=== PATIENT | female | born 1990 | race Hispanic/Latino ===

== ENCOUNTER 2018-06-15 21:39 | Emergency (ER) | payer BC ==
[2018-06-15] MEDS ORDERED: CEFTRIAXONE/SWI 1gm 1 GM/10 ML SYR ONE (22:22)
[2018-06-15] MEDS ORDERED: NA CHLORIDE 0.9% 1,000 ML ONE (22:22)
[2018-06-15] MEDS ORDERED: KETOROLAC 30 MG/ML INJ ONE (22:22)
[2018-06-15 22:26] LABS: Urine Blood TRACE (NEG); Urine Glucose NEGATIVE (NEG); Urine Protein NEGATIVE (NEG)
[2018-06-15 22:30] LABS: Absolute Lymphocytes (CBC) 1.2 K/uL (0.7-4.9); Absolute Monocytes 0.4 K/uL (0.1-1.3); Absolute Neutrophil 3.9 K/uL (1.8-8.0); Basophils % 0.4 % (0-1.3); Lymphocytes % 21.7 % (15.3-44.8); MPV 9.8 fL (7.6-11.3); Monocytes % 7.8 % (3.3-12.3); RBC Red Blood Cell Count 4.21 M/uL (3.86-4.86)
[2018-06-15 22:43] LABS: ALT/SGPT 13 U/L (12-78); AST/SGOT 11 U/L (15-37); Albumin 4.5 g/dL (3.4-5.0); Alkaline Phosphatase 56 U/L (45-117); BUN Blood Urea Nitrogen 6 mg/dL (7-18); Bicarbonate 26 mmol/L (21-32); Bilirubin Direct 0.2 mg/dL (0-0.2); Bilirubin Total 0.8 mg/dL (0.2-1.0); Glucose Level 104 mg/dL (74-106); Lipase 65 U/L (73-393); Potassium 3.3 mmol/L (3.5-5.1); Protein, Total 7.6 g/dL (6.4-8.2); Sodium Level 140 mmol/L (136-145)
--- NOTE | 2018-06-16 00:30 | ER ---
Nurse's Notes [facility] Name: Veronica Watson Age: 28 yrs Sex: Female : 1990 Arrival Date: 06/15/2018 Time: 21:50 Bed 6 Private MD: Diagnosis: Gastritis and duodenitis Presentation: 06/15 21:52 Presenting complaint: Patient states: left lower abd pain that radiates to left flank. ak1 pt c/o vomiting X1 this morning and diarrhea X1 this morning. pt denies burning with urination, pt denies N/V at this time. Transition of care: patient was not received from another setting of care. Onset of symptoms was June 15, 2018. Risk Assessment: Do you want to hurt yourself or someone else? Patient reports no desire to harm self or others. Initial Sepsis Screen: Does the patient meet any 2 criteria? No. Patient's initial sepsis screen is negative. Does the patient have a suspected source of infection? No. Patient's initial sepsis screen is negative. Care prior to arrival: None. 21:52 Method Of Arrival: Ambulatory ak 21:52 Acuity: CARYL 3 ak1 Triage Assessment: 21:53 General: Appears in no apparent distress. Behavior is calm, cooperative, anxious. 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 - Social history:: Smoking status: Patient/guardian denies using tobacco, Patient/guardian denies using alcohol, street drugs, The patient lives with family. - Ebola Screening: : No symptoms or risks identified at this time. - Family history:: not pertinent. Screenin:01 Abuse screen: Denies threats or abuse. Nutritional screening: No deficits noted. jd3 Tuberculosis screening: No symptoms or risk factors identified. Fall Risk Ambulatory Aid- None/Bed Rest/Nurse Assist (0 pts). Gait- Normal/Bed Rest/Wheelchair (0 pts) Mental Status- Oriented to own ability (0 pts). Total Jc Fall Scale indicates No Risk (0-24 pts). Assessment: 21:58 General: Appears in no apparent distress. uncomfortable, Behavior is calm, cooperative, jd3 appropriate for age. Pain: Complains of pain in posterior aspect of left lateral abdomen Quality of pain is described as aching, tender. Neuro: Level of Consciousness is awake, alert, obeys commands, Oriented to person, place, time, situation. Cardiovascular: Capillary refill < 3 seconds Patient's skin is warm and dry. Respiratory: Airway is patent Respiratory effort is even, unlabored, Respiratory pattern is regular, symmetrical. GI: Abdomen is flat, non-distended, Bowel sounds present X 4 quads. Abdomen is tender to palpation in posterior aspect of left lateral abdomen, left upper quadrant and left lower quadrant Reports. : Reports small amount of blood in the urine. EENT: No signs and/or symptoms were reported regarding the EENT system. Derm: Skin is intact, Skin is dry, Skin is normal, Skin temperature is warm. Musculoskeletal: Circulation, motion, and sensation intact. Range of motion: intact in all extremities. 06/16 00:35 Reassessment: Patient and/or family updated on plan of care and expected duration. Pain tl1 level reassessed. Patient is alert, oriented x 3, equal unlabored respirations, skin warm/dry/pink. Patient states feeling better. Patient states symptoms have improved. GI: Bowel sounds present X 4 quads. Abd is soft and non tender X 4 quads. Vital Signs: 06/15 21:53 BP 120 / 73; Pulse 91; Resp 18; Temp 99.0(O); Pulse Ox 100% on R/A; Weight 77.11 kg ak1 (R); Height 5 ft. 7 in. (170.18 cm) (R); Pain 6/10; 22:25 BP 115 / 69; Pulse 88; Resp 17; Pulse Ox 100% on R/A; Pain 2/10; tl1 23:29 BP 115 / 75; Pulse 79; Resp 17; Pulse Ox 100% ; Pain 0/10; tl1 06/16 00:35 BP 110 / 66; Pulse 77; Resp 17; Temp 98.7; Pulse Ox 100% ; Pain 0/10; tl1 06/15 21:53 Body Mass Index 26.63 (77.11 kg, 170.18 cm) ak1 ED Course: 02/15 21:50 Patient arrived in ED. ak1 21:50 Susana Mcintyre MD is Attending Physician. ma2 21:53 Triage completed. ak1 21:53 Christopher Jasso, EDSON is Primary Nurse. jd3 21:53 Arm band placed on Patient placed in an exam room, on a stretcher, Patient notified of ak1 wait time. 22:01 Patient has correct armband on for positive identification. Placed in gown. Bed in low jd3 position. Call light in reach. Side rails up X 1. Adult w/ patient. 22:05 No provider procedures requiring assistance completed. Inserted saline lock: 20 gauge tl1 in right antecubital area, using aseptic technique. Blood collected. 22:10 Radiology exam delayed due to lab results not completed at this time. (BUN/Creatinine). 2 22:[address] via wheelchair. nj 23:02 CT completed. Patient tolerated procedure well. Patient moved back from CT. nj 23:13 CT Abd/Pelvis - W/Contrast In Process Unspecified. EDMS 06/16 00:37 IV discontinued, intact, bleeding controlled, No redness/swelling at site. Pressure tl1 dressing applied. Administered Medications: 06/15 22:21 Drug: Rocephin 1 grams Route: IV; Rate: calculated rate; Infused Over: 5 mins; Site: tl1 right antecubital; 22:53 Follow up: IV Status: Completed infusion tl1 22:21 Drug: TORadol 30 mg Route: IVP; Infused Over: 2 mins; Site: right antecubital; tl1 22:53 Follow up: Response: No adverse reaction; Marked relief of symptoms; Pain is decreased tl1 22:22 Drug: NS 0.9% 1000 ml Route: IV; Rate: 1 bolus; Site: right antecubital; tl1 22:53 Follow up: IV Status: Completed infusion tl1 Outcome: 06/16 00:26 Discharge ordered by . ma2 00:36 Discharged to home ambulatory, with family. tl1 00:36 Condition: good 00:36 Discharge instructions given to patient, family, Instructed on discharge instructions, follow up and referral plans. medication usage, Demonstrated understanding of instructions, follow-up care, medications, Prescriptions given X 2. 00:37 Patient left the ED. tl1 Signatures: [facility] Ayana Carrasco, RN RN tl1 Nataly Kemp RN RN ak1 Michael [place] vm2 Christopher Jasso RN RN jd3 Susana Mcintyre MD MD ma2
--- NOTE | 2018-06-16 00:32 | EDPHYS ---
Physician Documentation [facility] Name: Veronica Watson Age: 28 yrs Sex: Female : 1990 Arrival Date: 06/15/2018 Time: 21:50 Bed 6 Private MD: ED Physician Susana Mcintyre HPI: 06/15 22:42 This 28 yrs old Female presents to ER via Ambulatory with complaints of abd ma2 pain. 22:42 The patient presents with abdominal pain. Onset: The symptoms/episode began/occurred ma2 gradually, 1 day(s) ago. Associated signs and symptoms: Pertinent negatives: nausea and vomiting, blood in stools, diarrhea, shortness of breath, vomiting. The symptoms are described as achy. Severity of pain: At its worst the pain was moderate in the emergency department the pain is unchanged. The patient has not experienced similar symptoms in the past. 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 - Social history:: Smoking status: Patient/guardian denies using tobacco, Patient/guardian denies using alcohol, street drugs, The patient lives with family. - Ebola Screening: : No symptoms or risks identified at this time. - Family history:: not pertinent. ROS: 22:42 Constitutional: Negative for fever, chills, and weight loss. ma2 22:42 Abdomen/GI: Positive for abdominal pain, Negative for nausea and vomiting, nausea, vomiting, and diarrhea, vomiting, abdominal distension, rectal bleeding, flatulence. 22:42 All other systems are negative. Exam: 22:42 Constitutional: This is a well developed, well nourished patient who is awake, alert, ma2 and in no acute distress. Chest/axilla: Normal chest wall appearance and motion. Nontender with no deformity. No lesions are appreciated. Cardiovascular: Regular rate and rhythm with a normal S1 and S2. No gallops, murmurs, or rubs. Normal PMI, no JVD. No pulse deficits. Respiratory: Lungs have equal breath sounds bilaterally, clear to auscultation and percussion. No rales, rhonchi or wheezes noted. No increased work of breathing, no retractions or nasal flaring. Abdomen/GI: Soft, non-tender, with normal bowel sounds. No distension or tympany. No guarding or rebound. No evidence of tenderness throughout. Back: No spinal tenderness. No costovertebral tenderness. Full range of motion. MS/ Extremity: Pulses equal, no cyanosis. Neurovascular intact. Full, normal range of motion. Neuro: Awake and alert, GCS 15, oriented to person, place, time, and situation. Cranial nerves II-XII grossly intact. Motor strength 5/5 in all extremities. Sensory grossly intact. Cerebellar exam normal. Normal gait. Vital Signs: 21:53 BP 120 / 73; Pulse 91; Resp 18; Temp 99.0(O); Pulse Ox 100% on R/A; Weight 77.11 kg ak1 (R); Height 5 ft. 7 in. (170.18 cm) (R); Pain 6/10; 22:25 BP 115 / 69; Pulse 88; Resp 17; Pulse Ox 100% on R/A; Pain 2/10; tl1 23:29 BP 115 / 75; Pulse 79; Resp 17; Pulse Ox 100% ; Pain 0/10; tl1 06/16 00:35 BP 110 / 66; Pulse 77; Resp 17; Temp 98.7; Pulse Ox 100% ; Pain 0/10; tl1 06/15 21:53 Body Mass Index 26.63 (77.11 kg, 170.18 cm) ak1 MDM: 06/15 21:50 Patient medically screened. ma2 22:42 Differential diagnosis: diverticulitis, Ectopic , gastritis, gastroesophageal ma2 reflux disease, Irritable bowel syndrome. 06/16 00:26 Data reviewed: vital signs, nurses notes. Counseling: I had a detailed discussion with ma2 the patient and/or guardian regarding: the historical points, exam findings, and any diagnostic results supporting the discharge/admit diagnosis, the presence of at least one elevated blood pressure reading (>120/80) during this emergency department visit. Response to treatment: the patient's symptoms have markedly improved after treatment. 06/15 22:07 Order name: Urine Dipstick--Ancillary (enter results); Complete Time: 23:38 ag4 06/15 22:07 Order name: Urine --Ancillary (enter results); Complete Time: 23:38 4 06/15 22:09 Order name: Basic Metabolic Panel; Complete Time: 23:38 ak2 06/15 22:09 Order name: CBC with Diff; Complete Time: 23:38 ak2 06/15 22:09 Order name: Creatinine for Radiology; Complete Time: 23:38 ak2 06/15 22:09 Order name: Hepatic Function; Complete Time: 23:38 ak2 06/15 22:09 Order name: Lipase; Complete Time: 23:38 ak2 06/15 22:09 Order name: IV Saline Lock; Complete Time: 22:34 ak2 06/15 22:09 Order name: Labs collected and sent; Complete Time: 22:34 [facility] 06/15 22:09 Order name: Test, Serum; Complete Time: 23:38 ak2 06/15 22:09 Order name: CT Abd/Pelvis - W/Contrast [facility] 06/15 22:09 Order name: Urine Dipstick-Ancillary (obtain specimen); Complete Time: 22:22 ma2 Administered Medications: 06/15 22:21 Drug: Rocephin 1 grams Route: IV; Rate: calculated rate; Infused Over: 5 mins; Site: tl1 right antecubital; 22:53 Follow up: IV Status: Completed infusion tl1 22:21 Drug: TORadol 30 mg Route: IVP; Infused Over: 2 mins; Site: right antecubital; tl1 22:53 Follow up: Response: No adverse reaction; Marked relief of symptoms; Pain is decreased tl1 22:22 Drug: NS 0.9% 1000 ml Route: IV; Rate: 1 bolus; Site: right antecubital; tl1 22:53 Follow up: IV Status: Completed infusion tl1 Disposition: 06/16/18 00:26 Discharged to Home. Impression: Gastritis and duodenitis. - Condition is Stable. - Discharge Instructions: Gastritis, Adult. - Prescriptions for Tylenol- Codeine #3 300-30 mg Oral Tablet - take 2 tablet by ORAL route every 6 hours As needed; 30 tablet. Pepcid 20 mg Oral Tablet - take 1 tablet by ORAL route once daily for 10 days; 10 tablet. - Medication Reconciliation Form, Thank You Letter, Antibiotic Education, Prescription Opioid Use form. - Follow up: Private Physician; When: [place]; Reason: Continuance of care. Signatures: Dispatcher [employer] Ayana Carrasco RN RN tl1 aNtaly Kemp RN RN ak1 Susana Mcintyre MD MD ma2 Corrections: (The following items were deleted from the chart) 06/16 00:37 00:26 06/16/2018 00:26 Discharged to Home. Impression: Gastritis and duodenitis. tl1 Condition is Stable. Forms are Medication Reconciliation Form, Thank You Letter, Antibiotic Education, Prescription Opioid Use. Follow up: Private Physician; When: Tomorrow; Reason: Continuance of care. ma2
--- NOTE | 2018-06-18 20:02 | RAD REPORT ---
EXAM DESCRIPTION: CT Abdomen and Pelvis With Contrast CLINICAL HISTORY: ABD PAIN. COMPARISON: None. TECHNIQUE: Contiguous axial sections are obtained through the abdomen and pelvis as per protocol aft er administration of iodinated contrast. Oral contrast was not administered. Sagittal and coronal ref ormations were obtained. Automatic exposure control (AEC), mA and/or kV adjustment by patient size, and/or iterative reconstru ctive technique was use, per departmental dose optimization program, during the performance of the CT examination. FINDINGS: The sql report analyst view demonstrates no abnormalities. The visualized lung bases demonstrates no abnormalities. The liver is normal in size and demonstrates normal attenuation and enhancement. The spleen, pancreas , adrenal glands appear normal in size and attenuation without any focal abnormalities. The gallbladd er is normal. Kidneys demonstrate no evidence of calculi. Kidneys are normal in size, shape, attenuation and enhanc ement. Focal parenchymal loss is noted in the left kidney. The aorta, IVC and retroperitoneal structures appear normal. The stomach appears unremarkable. The small bowel loops appear unremarkable. The appendix is normal. The colon is unremarkable. Evidenc e of mesenteric adenitis is noted. No evidence of free intraperitoneal fluid or air is noted. CT examination of the pelvis demonstrates no evidence of mass or adenopathy. The urinary bladder appe ars normal. The reproductive organs are unremarkable. Inguinal regions are unremarkable. Bony structures are unremarkable. IMPRESSION: Mesenteric adenitis. Electronically signed by Elisa Barrios MD 06/15/2018 11:19 PM NUT FORMER Due to temporary technical issues with the PACS/Fluency reporting system, reports are being signed by the in house radiologist as a courtesy to ensure prompt reporting. The interpreting radiologist is f ully responsible for the content of the report.
== END 2018-06-16 00:37 | disposition home or self-care (01) ==
LOC: ER 21:39
DX: K29.70 Gastritis, unspecified, without bleeding (principal); K29.80 Duodenitis without bleeding; I88.0 Nonspecific mesenteric lymphadenitis
CPT/HCPCS: 36415; 74177; 80048; 80076; 81003; 81025; 83690; 84703; 85025; 96365; 96375; 99284; J0696; J7030; Q9967